=== PATIENT | female | born 1990 | race American Indian/Alaskan Native ===

== ENCOUNTER 2019-09-19 12:05 | Emergency (ER) | payer SELFPAY ==
[2019-09-19 12:12] VITALS: BP 124/77
[2019-09-19] MEDS ORDERED: PROVENTIL IH STA (12:14)
[2019-09-19] MEDS ORDERED: ATROVENT IH STA (12:14)
[2019-09-19] MEDS ORDERED: DELTASONE PO STA (12:14)
--- NOTE | 2019-09-19 12:18 | Emergency Department Report ---
Blank Doc - Documentation Documentation: 28 y/o with asthma exacerbation This initial assessment/diagnostic orders/clinical plan/treatment(s) is/are subject to change based on patient's health status, clinical progression and re- assessment by fellow clinical providers in the ED. Further treatment and workup at subsequent clinical providers discretion. Patient/guardians urged not to elope from the ED as their condition may be serious if not clinically assessed and managed. Initial orders include:
--- NOTE | 2019-09-19 14:18 | Emergency Department Report ---
ED Asthma HPI - General Chief Complaint: Adult Asthma Stated Complaint: CB Time Seen by Provider: 09/19/19 12:13 Source: patient Mode of arrival: Ambulatory Limitations: No Limitations - History of Present Illness MD Complaint: "asthma attack" -: days(s) (3) Asthma History: childhood onset Severity: moderate Context: ran out of meds Associated Symptoms: dry cough, chest pain. denies: fever, hemoptysis, leg edema, syncope - Related Data Previous Rx's Medication Instructions Recorded Last Taken Type ALBUTEROL Inhaler (OR & NICU) 2 puff IH QID PRN #1 inhalation 09/19/19 Unknown Rx [ProAir HFA Inhaler] predniSONE [Deltasone] 20 mg PO QDAY #5 tab 09/19/19 Unknown Rx Allergies Allergy/AdvReac Type Severity Reaction Status Date / Time codeine Allergy Rash Verified 09/19/19 12:06 ED Review of Systems ROS: Stated complaint: CB Other details as noted in HPI Comment: All other systems reviewed and negative ED Past Medical Hx - Past Medical History Previous Medical History?: Yes Hx Asthma: Yes - Surgical History Additional Surgical History: C SECTION - Social History Smoking Status: Never Smoker Substance Use Type: None - Medications Home Medications: Home Medications Medication Instructions Recorded Confirmed Last Taken Type ALBUTEROL Inhaler (OR & NICU) 2 puff IH QID PRN #1 inhalation 09/19/19 Unknown Rx [ProAir HFA Inhaler] predniSONE [Deltasone] 20 mg PO QDAY #5 tab 09/19/19 Unknown Rx ED Physical Exam - General Limitations: No Limitations General appearance: alert, in no apparent distress - Head Head exam: Present: atraumatic, normocephalic - Eye Eye exam: Present: normal appearance - ENT ENT exam: Present: mucous membranes moist - Neck Neck exam: Present: normal inspection - Respiratory Respiratory exam: Present: normal lung sounds bilaterally, wheezes. Absent: respiratory distress, rales, rhonchi - Cardiovascular Cardiovascular Exam: Present: regular rate, normal rhythm. Absent: systolic murmur, diastolic murmur, rubs, gallop - GI/Abdominal GI/Abdominal exam: Present: soft, normal bowel sounds - Extremities Exam Extremities exam: Present: normal inspection - Back Exam Back exam: Present: normal inspection - Neurological Exam Neurological exam: Present: alert, oriented X3 - Psychiatric Psychiatric exam: Present: normal affect, normal mood - Skin Skin exam: Present: warm, dry, intact, normal color. Absent: rash ED Course Vital Signs 09/19/19 09/19/19 12:11 12:28 Temperature 98.4 F Pulse Rate 97 H Pulse Rate [ 122 H Anterior Bilateral] Respiratory 24 Rate Respiratory 18 Rate [Anterior Bilateral] Blood Pressure 124/77 O2 Sat by Pulse 100 Oximetry ED Medical Decision Making - Medical Decision Making Received a neb treatment and steroids is feeling much improved. Her wheezing has resolved. Patient be discharged home. Critical care attestation.: If time is entered above; I have spent that time in minutes in the direct care of this critically ill patient, excluding procedure time. ED Disposition Clinical Impression: Asthma exacerbation Qualifiers: Asthma severity: moderate Asthma persistence: unspecified Qualified Code(s): J45.901 - Unspecified asthma with (acute) exacerbation Disposition: - TO HOME OR SELFCARE Is pt being admited?: No Does the pt Need Aspirin: No Condition: Stable Instructions: Asthma (ED) Referrals: JOSÉ MIGUEL BAIRD MD [Referring] - 3-5 Days Time of Disposition: 14:17
== END 2019-09-19 14:30 | disposition home or self-care (01) ==
LOC: ED 12:05
DX: J45.901 Unspecified asthma with (acute) exacerbation (principal); Z88.5 Allergy status to narcotic agent; Z79.899 Other long term (current) drug therapy
CPT/HCPCS: 94640; 99283; J7512; 94644

== ENCOUNTER 2019-10-01 08:22 | Emergency (ER) | payer OTHER ==
[2019-10-01] MEDS ORDERED: methylPREDNISolone Sod Succinate 125 MG/2 ML INJ IM ONE (08:46)
[2019-10-01] MEDS ORDERED: IPRATROPIUM/ALBUTEROL SULFATE 3 ML AMPUL.NEB IH ONE (08:46)
--- NOTE | 2019-10-01 09:41 | Emergency Department Report ---
- General Chief Complaint: Adult Asthma Stated Complaint: CB Time Seen by Provider: 10/01/19 08:41 Source: patient Mode of arrival: Ambulatory Limitations: No Limitations - History of Present Illness Initial Comments: Patient is a 28-year-old female presents emergency room with complaints of shortness of breath that began 2 days ago. She has associated dry cough, congestion, sneezing, nausea, chest discomfort after frequent coughing. she denies any fever, productive cough, recent travel, leg swelling, recent surgery. She states that she has a past medical history of asthma and never filled her albuterol inhaler secondary to monetary issues. She states that she has had a sick contact who had URI symptoms which self resolved. She states that her only other past medical history is migraines and she has an allergy to codeine. Patient states that she has a nonsmoker but is frequently around a smoker. - Related Data Previous Rx's Medication Instructions Recorded Last Taken Type ALBUTEROL Inhaler (OR & NICU) 2 puff IH QID PRN #1 inhalation 09/19/19 Unknown Rx [ProAir HFA Inhaler] ALBUTEROL Inhaler (OR & NICU) 2 puff IH QID PRN #1 inhalation 10/01/19 Unknown Rx [ProAir HFA Inhaler] Fluticasone [Flonase] 1 spray NS QDAY #1 bottle 10/01/19 Unknown Rx Montelukast [Singulair] 10 mg PO QPM #14 tablet 10/01/19 Unknown Rx Prednisone [predniSONE 10 mg 10 mg PO .TAPER #1 tab.ds.pk 10/01/19 Unknown Rx (6-Day Pack, 21 Tabs)] Allergies Allergy/AdvReac Type Severity Reaction Status Date / Time codeine Allergy Rash Verified 09/19/19 12:06 ED Review of Systems ROS: Stated complaint: CB Other details as noted in HPI Comment: All other systems reviewed and negative ED Past Medical Hx - Past Medical History Previous Medical History?: Yes Hx Asthma: Yes - Surgical History Past Surgical History?: Yes Additional Surgical History: C SECTION - Social History Smoking Status: Never Smoker Substance Use Type: None - Medications Home Medications: Home Medications Medication Instructions Recorded Confirmed Last Taken Type ALBUTEROL Inhaler (OR & NICU) 2 puff IH QID PRN #1 inhalation 09/19/19 Unknown Rx [ProAir HFA Inhaler] ALBUTEROL Inhaler (OR & NICU) 2 puff IH QID PRN #1 inhalation 10/01/19 Unknown Rx [ProAir HFA Inhaler] Fluticasone [Flonase] 1 spray NS QDAY #1 bottle 10/01/19 Unknown Rx Montelukast [Singulair] 10 mg PO QPM #14 tablet 10/01/19 Unknown Rx Prednisone [predniSONE 10 mg 10 mg PO .TAPER #1 tab.ds.pk 10/01/19 Unknown Rx (6-Day Pack, 21 Tabs)] ED Physical Exam - General Limitations: No Limitations General appearance: alert, in no apparent distress - Head Head exam: Present: atraumatic, normocephalic - Eye Eye exam: Present: normal appearance - ENT ENT exam: Present: mucous membranes moist, other (pale boggy turbinates with clear nasal congestion) - Respiratory Respiratory exam: Present: wheezes (mild wheezing in the bilateral bases). Absent: respiratory distress, rales, rhonchi, stridor, chest wall tenderness, accessory muscle use, decreased breath sounds, prolonged expiratory - Cardiovascular Cardiovascular Exam: Present: regular rate, normal rhythm, normal heart sounds. Absent: systolic murmur, diastolic murmur, rubs, gallop - Neurological Exam Neurological exam: Present: alert, oriented X3 - Psychiatric Psychiatric exam: Present: normal affect, normal mood - Skin Skin exam: Present: warm, dry, intact ED Course Vital Signs 10/01/19 10/01/19 10/01/19 08:32 08:35 10:02 Temperature 98.6 F Pulse Rate 89 90 Respiratory 18 Rate Blood Pressure 123/74 Blood Pressure 121/70 [Left] O2 Sat by Pulse 100 99 Oximetry ED Medical Decision Making - Lab Data Vital Signs 10/01/19 10/01/19 10/01/19 08:32 08:35 10:02 Temperature 98.6 F Pulse Rate 89 90 Respiratory 18 Rate Blood Pressure 123/74 Blood Pressure 121/70 [Left] O2 Sat by Pulse 100 99 Oximetry - Medical Decision Making Patient is a 28-year-old female presents emergency room with complaints of shortness of breath that began 2 days ago. She has associated dry cough, congestion, sneezing, nausea, chest discomfort after frequent coughing. she denies any fever, productive cough, recent travel, leg swelling, recent surgery. She states that she has a past medical history of asthma and never filled her albuterol inhaler secondary to monetary issues. She states that she has had a sick contact who had URI symptoms which self resolved. She states that her only other past medical history is migraines and she has an allergy to codeine. Patient states that she has a nonsmoker but is frequently around a smoker. on exam: mild wheezing in the bilateral bases, pale boggy turbinates with clear nasal congestion. vitals are normal. pt given duo neb and solumedrol and wheezing completely resolved. pt symptoms and examination consistent with viral URI and asthma exacerbation. pt given prescription for flonase, prednisone, albuterol inhaler, and singulair. pt given goodrx card to decrease her prescription cost. advised pt to Please take medication as prescribed. Please increase your fluid intake over the next several days and use a humidifier. Please avoid triggers for your asthma. Follow-up with a primary care doctor in the next 2-3 days. given a list of community clinics. Return to the emergency room for any new or worsening symptoms. - Differential Diagnosis URI, viral syndrome, PNA, asthma exacerbation, allergies, allergic rhinitis Critical care attestation.: If time is entered above; I have spent that time in minutes in the direct care of this critically ill patient, excluding procedure time. ED Disposition Clinical Impression: Upper respiratory infection Qualifiers: URI type: unspecified URI Qualified Code(s): J06.9 - Acute upper respiratory infection, unspecified Allergic rhinitis Qualifiers: Allergic rhinitis trigger: unspecified Allergic rhinitis seasonality: unspecified Qualified Code(s): J30.9 - Allergic rhinitis, unspecified Asthma Qualifiers: Asthma severity: unspecified severity Asthma persistence: unspecified Asthma complication type: with acute exacerbation Qualified Code(s): J45.901 - Unspecified asthma with (acute) exacerbation Disposition: DC-01 TO HOME OR SELFCARE Is pt being admited?: No Does the pt Need Aspirin: No Condition: Stable Instructions: Asthma (ED), Upper Respiratory Infection (ED) Additional Instructions: Please take medication as prescribed. Please increase your fluid intake over the next several days and use a humidifier. Please avoid triggers for your asthma. Follow-up with a primary care doctor in the next 2-3 days. given a list of community clinics. Return to the emergency room for any new or worsening symptoms. Prescriptions: Fluticasone [Flonase] 1 spray NS QDAY #1 bottle Prednisone [predniSONE 10 mg (6-Day Pack, 21 Tabs)] 10 mg PO .TAPER #1 tab.ds.pk ALBUTEROL Inhaler (OR & NICU) [ProAir HFA Inhaler] 2 puff IH QID PRN #1 inhalation PRN Reason: Shortness Of Breath Montelukast [Singulair] 10 mg PO QPM #14 tablet Referrals: [facility] [Provider Group] - 2-3 Days [facility] [Outside] - 2-3 Days [facility] [Outside] - 2-3 Days Forms: Work/School Release Form(ED) Time of Disposition: 09:40 Print Language: BELIZEAN
[2019-10-01 10:03] VITALS: BP 121/70
== END 2019-10-01 10:02 | disposition home or self-care (01) ==
LOC: ED 08:22
DX: J06.9 Acute upper respiratory infection, unspecified (principal); J30.9 Allergic rhinitis, unspecified; Z79.899 Other long term (current) drug therapy
CPT/HCPCS: 94640; 96372; 99282; J2930

== ENCOUNTER 2020-01-07 03:41 | Emergency (ER) | payer SELFPAY ==
[2020-01-07 08:16] VITALS: BP 122/78
[2020-01-07] MEDS ORDERED: TETRACAINE 0.5% OPHTH SOLN 4ML OU ONE (09:30)
[2020-01-07] MEDS ORDERED: FLUORESCEIN 1 MG STRIP OP ONE (09:30)
--- NOTE | 2020-01-07 09:31 | Emergency Department Report ---
Eye Injury/Foreign Body - HPI Duration: 1 week Eye Location: Right Severity: Severe Tetanus Status: Unknown Eye Symptoms: Eye Pain: Yes (Right eye), Blurred Vision: Yes (Right eye), Eye Redness: Yes (Right eye), Grinding/Hammering Metal: No, Used Eye Protection: No, Contact Lens Use: No, Recalls Injury: No, Photophobia: Yes (The right eye) Other History: This is a 29-year-old -Malt[place] female who presents with right eye pain for 1 week. Patient stays she is washing right eye out with a cool water with worsening symptoms. Patient states when she woke up this morning around 0300 a.m. she was could barely open her right eye. She reports stabbing pain and photophobia. Patient states she applied a little cool washcloth to the right eye which improved symptoms. Patient states she can barely see anything out of her right eye. She denies contact use. She denies a grinding sensation to right eye. Reports clear discharge. ED Review of Systems ROS: Stated complaint: PINK EYE Other details as noted in HPI Constitutional: denies: chills, fever Eyes: eye pain (right). denies: eye discharge, vision change ENT: denies: ear pain, throat pain Respiratory: denies: cough, shortness of breath, wheezing Cardiovascular: denies: chest pain, palpitations Gastrointestinal: denies: abdominal pain, nausea, diarrhea Skin: denies: rash, lesions Neurological: denies: headache, weakness, paresthesias Psychiatric: denies: anxiety, depression ED Past Medical Hx - Past Medical History Previous Medical History?: Yes Hx Asthma: Yes - Surgical History Past Surgical History?: Yes Additional Surgical History: C SECTION. gastroscis - Social History Smoking Status: Current Every Day Smoker Substance Use Type: None - Medications Home Medications: Home Medications Medication Instructions Recorded Confirmed Last Taken Type Albuterol INH(or & Nicu Only) 2 puff IH QID PRN #1 inhalation 09/19/19 Unknown Rx [ProAir HFA Inhaler] Albuterol INH(or & Nicu Only) 2 puff IH QID PRN #1 inhalation 10/01/19 Unknown Rx [ProAir HFA Inhaler] Fluticasone [Flonase] 1 spray NS QDAY #1 bottle 10/01/19 Unknown Rx Montelukast [Singulair] 10 mg PO QPM #14 tablet 10/01/19 Unknown Rx Prednisone [predniSONE 10 mg 10 mg PO .TAPER #1 tab.ds.pk 10/01/19 Unknown Rx (6-Day Pack, 21 Tabs)] Erythromycin [Erythromycin Ophth 10 applic OP Q6H 7 Days #1 tube 01/07/20 Unknown Rx Oint] Eye Injury Exam - Exam General: Vital signs noted. No distress. Alert and acting appropriately. - Visual Acuity Right Eye Exam: Right Injection, Right Purulent Discharge, Right Fluorescein Uptake (Negative clue cells or signs of a corneal abrasion, 20 mm right eye pressure), Right Photophobia, Both EOMI, Neither Chemosis, Neither Abnormal Pupil, Neither Eye Foreign Body, Neither Lid Foreign Body, Neither Mucous Discharge, Neither Fluorescein Uptake (slit lamp), Neither Cell/Flare (slit lamp), Neither Corneal Edema ED Course Vital Signs 01/07/20 01/07/20 03:45 08:07 Temperature 98.4 F Pulse Rate 83 69 Respiratory 18 16 Rate Blood Pressure 125/84 122/78 O2 Sat by Pulse 99 100 Oximetry ED Medical Decision Making - Medical Decision Making This is a 29-year-old female that presents with redness and photophobia to right eye for 1 week. Patient is stable and was examined by me. Vitals normal. No recent eye trauma. Negative sondra sign. Photophobia. IOP 20. No clue cells or signs of corneal abrasion on Mireles light exam. Given history and exam I have low suspicion for corneal abrasion, globe rupture, retinal detachment, LOC,, or foreign body. Start erythromycin ophthalmic ointment to cover bacterial conjunctivitis. Referral to cuff setter lockstitch for continued care. Discharge home with primary care and ophthalmology follow-up in 24 to 48 hours if no change in symptoms. Critical care attestation.: If time is entered above; I have spent that time in minutes in the direct care of this critically ill patient, excluding procedure time. ED Disposition Clinical Impression: Iritis of right eye Conjunctivitis Qualifiers: Conjunctivitis type: acute Acute conjunctivitis type: bacterial Laterality: right Qualified Code(s): H10.31 - Unspecified acute conjunctivitis, right eye Disposition: - TO HOME OR SELFCARE Is pt being admited?: No Condition: Stable Instructions: Conjunctivitis (ED) Additional Instructions: Don't share any towels or bedding to prevent spread of infection. Follow up with the ophthalmology or director of accounts payable in 24-48 hours. Use cool compress to each eye to decrease swelling. Avoid rubbing or touching eyes, because rubbing eyes can cause worsening symptoms. Take medication as prescribed. Return to ER if swelling don't improve or difficulty breathing after 2 days of medication. Prescriptions: Erythromycin [Erythromycin Ophth Oint] 10 applic OP Q6H 7 Days #1 tube Referrals: WILLI LEONARDO MD [Staff Physician] - 3-5 Days [facility] [Provider Group] - 3-5 Days [facility], [facility] [Provider Group] - 3-5 Days [facility] [Provider Group] - 3-5 Days Forms: Work/School Release Form(ED) Time of Disposition: 11:08
== END 2020-01-07 11:26 | disposition home or self-care (01) ==
LOC: ED 03:41
DX: H10.31 Unspecified acute conjunctivitis, right eye (principal); A18 Tuberculosis of other organs; J45.909 Unspecified asthma, uncomplicated; F17.200 Nicotine dependence, unspecified, uncomplicated; Z98.890 Other specified postprocedural states; Z79.899 Other long term (current) drug therapy; Z88.6 Allergy status to analgesic agent
CPT/HCPCS: 99283

== ENCOUNTER 2020-01-12 19:53 | Emergency (ER) | payer SELFPAY ==
[2020-01-12 20:41] VITALS: BP 118/75
[2020-01-13] MEDS ORDERED: IBUPROFEN 600 MG TAB PO ONE (00:50)
--- NOTE | 2020-01-13 00:53 | Emergency Department Report ---
Chief Complaint: Eye Problems Stated Complaint: RT EYE IRRITATION Time Seen by Provider: 01/13/20 00:49 - HPI History of Present Illness: 29-year-old -Greek female presents to the emergency room for right eye pain and swelling. Patient states that she was seen here before and is taking antibiotics but has gotten worse. Patient reports is sensitive to light. Patient never followed up with the telephone clerk telegraph office as she says she does not have the $300 to pay. Patient is requesting days off of work. Patient was placed on erythromycin ophthalmic ointment. - Exam Vital Signs: Vital Signs 01/12/20 20:07 Temperature 98.8 F Pulse Rate 82 Respiratory 18 Rate Blood Pressure 118/75 O2 Sat by Pulse 100 Oximetry MSE screening note: Focused history and physical exam performed. Due to findings the following was ordered: 29-year-old -Greek female presents to the emergency room for right eye pain and swelling. Patient states that she was seen here before and is taking antibiotics but has gotten worse. Patient reports is sensitive to light. Patient never followed up with the telephone clerk telegraph office as she says she does not have the $300 to pay. Patient is requesting days off of work. Patient was placed on erythromycin ophthalmic ointment. Discussed with patient that she needs to follow-up with an telephone clerk telegraph office as they are specialist and we are only specialist in emergency medicine. Discussed the patient she can take [id number] ibuprofen or Tylenol for pain management. Continued use of erythromycin. ED Disposition for MSE Clinical Impression: Conjunctivitis, Iritis of right eye Disposition: MED SCREENING EXAM-LEFT Is pt being admited?: No Does the pt Need Aspirin: No Condition: Stable Additional Instructions: It is important for you to follow-up with telephone clerk telegraph office as they are specialists in eyes. ER is only a specialist in emergency medicine. You can take [id number] Tylenol or ibuprofen for pain management. You need to wear sunglasses even in indoor to help with the pain. Referrals: PRIMARY [facility] [Primary Care Provider] - 3-5 Days WILLI LEONARDO MD [Staff Physician] - 3-5 Days [facility] [Provider Group] - 3-5 Days [facility] [Provider Group] - 3-5 Days Forms: Work/School Release Form(ED)
== END 2020-01-13 01:07 | disposition left against medical advice (07) ==
LOC: ED 19:53
DX: H20.9 Unspecified iridocyclitis (principal); H10.89 Other conjunctivitis; Z88.6 Allergy status to analgesic agent
CPT/HCPCS: 99282